=== PATIENT | female | born 1995 | race Caucasian/White ===

== ENCOUNTER 2016-12-27 14:48 | Emergency (ER) | payer OTHER ==
[~2016-12-27] VITALS: Ht 152.4 cm; Wt 58.1 kg
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
[2016-12-27] MEDS ORDERED: KETOROLAC 60 MG/2 ML VIAL. IM ONE (17:00)
[2016-12-27] MEDS ORDERED: ORPHENADRINE CITRATE 60 MG/2 ML VIAL. IM ONE (17:00)
[2016-12-27] MEDS ORDERED: methylPREDNISolone ACETATE 40 MG/ML VIAL. IM ONE (17:00)
[2016-12-27 17:48] LABS: AMPHETAMINE/METHAMPHETAMINE POS (NEG); BARBITURATES NEG (NEG); BENZODIAZEPINES POS (NEG); CANNABINOIDS NEG (NEG); COCAINE NEG (NEG); METHADONE NEG (NEG); OPIATES POS (NEG); PHENCYCLIDINE NEG (NEG)
--- NOTE | 2016-12-27 17:52 | RAD ---
PROCEDURE CT cervical spine without contrast. HISTORY Bilateral hand numbness radiating from neck. Neck pain and stiffness today. TECHNIQUE Axial images and coronal and sagittal re-formatted images are provided. One or more of the following individualized dose reduction techniques were utilized for this exam: 1. Automated exposure control. 2. Adjustment of the mA and/or kV according to patient's size. 3. Use of iterative reconstruction technique. COMPARISON None. FINDINGS There is straightening of cervical lordosis which may be positional. There is no fracture or dislocation. Prevertebral soft tissues are within normal limits. Craniovertebral junction is unremarkable. There is no definite canal or foraminal compromise at any level. Lymph nodes along the cervical chains are presumed reactive. Lung apices are clear. IMPRESSION Negative for fracture. Electronically signed by: Tal Garcia MD (Dec 27, 2016 17:51:24)
[2016-12-27 18:20] VITALS: BP 125/60
[2016-12-27 18:22] LABS: BACTERIA,URINE 0 /HPF (0-FEW); BILIRUBIN,URINE NEG (NEG); CLARITY,URINE HAZY; COLOR,URINE YELLOW; GLUCOSE,URINE NEG (NEG); NITRITE,URINE NEG (NEG); SQUAMOUS EPITHELIAL CELL,UR MOD /LPF; UROBILINOGEN,URINE 0.2 mg/dL (0.2 mg/dL)
[2016-12-27 18:26] LABS: U PREG PATIENT NEGATIVE (NEG)
[2016-12-27] MEDS ORDERED: CYCL5TAB PO (18:27)
[2016-12-27] MEDS ORDERED: HYDR-79 PO (18:27)
[2016-12-27] MEDS ORDERED: LORAZEPAM 2 MG/ML VIAL IM ONE (18:45)
== END 2016-12-27 19:30 | disposition home or self-care (01) ==
LOC: ER 14:48
DX: G54.2 Cervical root disorders, not elsewhere classified (principal); F41.9 Anxiety disorder, unspecified; F17.210 Nicotine dependence, cigarettes, uncomplicated; F12.10 Cannabis abuse, uncomplicated; M62.838 Other muscle spasm; F15.10 Other stimulant abuse, uncomplicated; Z88.8 Allergy status to other drugs, medicaments and biological substances
CPT/HCPCS: 36415; 72125; 80305; 81001; 81025; 84703; 87086; 87186; 96372; 99285; J1030; J1885; J2060; J2360; G0481

== ENCOUNTER 2018-05-15 11:38 | Emergency (ER) | payer SELFPAY ==
[~2018-05-15] VITALS: Ht 154.9 cm; Wt 56.7 kg
[~2018-05-15 11:38] MED LIST: CYCL5TAB PO; HYDR-79 PO
--- NOTE | 2018-05-15 12:12 | PHYS DOC ---
Past History Past Medical History: Anxiety Past Surgical History: No Surgical History Smoking: Cigarettes Alcohol Use: None Drug Use: Amphetamine, Methamphetamine Adult General Chief Complaint Chief Complaint: back pain in HPI HPI 23-year-old female patient at 20 weeks of gestation 20 weeks of gestation complaining of lower back pain with radiation to bilateral inguinal area for the last 3 days as a constant aching pain that getting force with movement. Patient denies vaginal bleeding, vaginal discharge, new symptoms, fever and chills, back injury. Patient states she had nausea during her without new change for the last 3 days. Patient states she feels movement. Patient has appointment for a scheduled OB ultrasound tomorrow at . Patient rated her pain 05/19 and states she took Tylenol yesterday with improvement of her pain. Review of Systems Review of Systems Constitutional: Denies fever or chills [] Eyes: Denies change in visual acuity, redness, or eye pain [] HENT: Denies nasal congestion or sore throat [] Respiratory: Denies cough or shortness of breath [] Cardiovascular: No additional information not addressed in HPI [] GI: Denies abdominal pain, nausea, vomiting, bloody stools or diarrhea [] : Denies dysuria or hematuria [] Musculoskeletal: Reports back pain, denies joint pain [] Integument: Denies rash or skin lesions [] Neurologic: Denies headache, focal weakness or sensory changes [] Endocrine: Denies polyuria or polydipsia [] All other systems were reviewed and found to be within normal limits, except as documented in this note. Current Medications Current Medications Current Medications Medications (Trade) Dose Ordered Sig/Rose Start Time Stop Time Status Last Admin Dose Admin Acetaminophen (Tylenol) 1,000 mg 1X ONCE 05/15/18 12:00 05/15/18 12:01 UNV Allergies Allergies Allergies Coded Allergies Type Severity Reaction Last Updated Verified cefaclor Allergy Unknown 12/27/16 Yes Physical Exam Physical Exam Constitutional: Well developed, well nourished, no acute distress, non-toxic appearance. [] HENT: Normocephalic, atraumatic, bilateral external ears normal, oropharynx moist, no oral exudates, nose normal. [] Eyes: PERRLA, EOMI, conjunctiva normal, no discharge. [] Neck: Normal range of motion, no tenderness, supple, no stridor. [] Cardiovascular:Heart rate regular rhythm, no murmur [] Lungs & Thorax: Bilateral breath sounds clear to auscultation [] Abdomen: Bowel sounds normal, soft, gravid abdomen with heart rate of 149 , no tenderness, no masses, no pulsatile masses. [] Skin: Warm, dry, no erythema, no rash. [] Back: No tenderness, no deformity, no muscle spasm, normal range of motion, no CVA tenderness. [] Extremities: No tenderness, no cyanosis, no clubbing, ROM intact, no edema. [] Neurologic: Alert and oriented X 3, normal motor function, normal sensory function, no focal deficits noted. [] Psychologic: Affect normal, judgement normal, mood normal. [] EKG EKG [] Radiology/Procedures Radiology/Procedures [] Course & Med Decision Making Course & Med Decision Making Pertinent Labs reviewed. (See chart for details) Evaluation of patient in ER showed 23-year-old female patient at 20 weeks of gestation comparing of low back pain for the last 3 days with radiation to bilateral groin area. Patient had unremarkable physical exam except for first of 149. UA was unremarkable. Patient told to PRODUCT TEST ENGINEER that she has appointment with pro officer and also wonder if she could have ultrasound in here instead of going to [facility] tomorrow. Patient informed about test result and needs to follow with her GUIDE DOG TRAINER and scheduled appointment for Ultrasound. She was instructed to take [id number] Tylenol. [] Dragon Disclaimer Dragon Disclaimer This electronic medical record was generated, in whole or in part, using a voice recognition dictation system. Departure Departure: Impression: Primary Impression: Low back pain during in second trimester Disposition: 01 HOME, SELF-CARE (at 1211) Condition: IMPROVED Referrals: PCP,NO (PCP) Patient Instructions: Back Pain in Additional Instructions: Drink plenty of liquids Follow-up with your GUIDE DOG TRAINER in 2-3 days Return to ER if not getting better Take [id number] Tylenol as needed for pain KARTHIK CANSECO MD May 15, 2018 12:12
[2018-05-15 12:15] VITALS: BP 111/61
[2018-05-15 12:16] LABS: BILIRUBIN,URINE NEG (NEG); CLARITY,URINE HAZY; COLOR,URINE YELLOW; GLUCOSE,URINE NEG (NEG)
[2018-05-15 12:17] LABS: NITRITE,URINE NEG (NEG); UROBILINOGEN,URINE 0.2 mg/dL (0.2 mg/dL)
[2018-05-15] MEDS ORDERED: ACETAMINOPHEN 500 MG TABLET PO ONE (12:20)
== END 2018-05-15 12:15 | disposition home or self-care (01) ==
LOC: ER 11:38
DX: O26.892 Other specified pregnancy related conditions, second trimester (principal); M54.5 Low back pain; O99.332 Smoking (tobacco) complicating pregnancy, second trimester; O99.342 Other mental disorders complicating pregnancy, second trimester; F41.9 Anxiety disorder, unspecified; Z3A.20 20 weeks gestation of pregnancy; Z88.1 Allergy status to other antibiotic agents
CPT/HCPCS: 81003; 99282